=== PATIENT | female | born 1995 | race Asian ===

== ENCOUNTER 2023-08-20 12:26 | Outpatient (AMB) | payer OTHER, SELFPAY ==
[2023-08-20 12:27] VITALS: BP 122/64; PULSE 83; O2SAT 100; BMI 25.7
--- NOTE | 2023-08-20 12:27 | MHC.PC.OV ---
Vital Signs 08/20/23 12:27 Height 5 ft 5.5 in Weight 157 lb BMI 25.7 BP 122/64 Blood Pressure Location Lt brachial Position Sitting Pulse 83 Pulse Source Pulse Oximeter Temp Source Skin Pulse Oximetry (%) 100 Oxygen Delivery Method Room Air Intake Visit Reasons: Annual Exam Intake Note: Patient is here today for a physical. Pacu Rn Required: No Allergies Penicillins Adverse Reaction (Intermediate, Verified 08/20/23 12:31) rash erythromycin Allergy (Unknown, Uncoded 08/20/23 12:31) rash Medication List - Last Reconciled 08/20/23 by Bertha Fairbanks MD cholecalciferol (vitamin D3) 50 mcg PO DAILY evening primrose oil 500 mg PO DAILY fluticasone propionate 50 mcg/actuation (Flonase Allergy Relief) 1 spray intranasal DAILY PRN jfhrmikvtdvz-frfb-shezi acid 18-400 mg-mcg (Centrum Complete) 1 tab PO DAILY Tobacco use date assessed: 08/20/23 Dental Screening Dental Screen Date: 08/20/23 Did you have a dental visit in the last 12 months?: Yes Did you have a dental problem in the last 6 months where you did not have access to dental care?: No Was dental information given to patient?: Patient has dentist HPI Annual Exam HPI Details 28-year-old female coming in for physical exam. Was seen by the nurse practitioner in February 2023 for a rash treated as eczematous dermatitis with steroids and allergy nasal spray patent did have blood work August 2022 high HDL of 84 LDL of 78 normal B12 low vitamin-D electrolytes normal blood sugar is normal liver function is normal thyroid is normal. Blood count is normal. LMP endo of june, [facility] may - regular 7 days, not sexually active , no papsmear [facility], [facility] Surgical History No pertinent past surgical history Family History (Updated 08/20/23 @ 12:51 by Bertha Fairbanks MD) Mother No problems noted. Father No problems noted. Maternal Uncle Pulmonary embolism Social History Housing: House Alcohol intake: never Patient Tobacco Use Status: Never used Tobacco e-Cigarette/Vaping Use: Never Used Second Hand Smoke Exposure: No Current occupational status: employed Cognitive needs: No Hearing needs: No Vision needs: No Questionnaire PHQ-9 Over the last 2 weeks, how often have you been bothered by any of the following problems? 1. Little interest or pleasure in doing things: not at all 2. Feeling down, depressed, or hopeless: not at all 3. Trouble falling or staying asleep, or sleeping too much: not at all 4. Feeling tired or having little energy: not at all 5. Poor appetite or overeating: not at all 6. Feeling bad about yourself - or that you are a failure or have let yourself or your family down: not at all 7. Trouble concentrating on things, such as reading the newspaper or watching television: not at all 8. Moving or speaking so slowly that other people could have noticed. Or the opposite - being so fidgety or restless that you have been moving around a lot more than usual: not at all 9. Thoughts that you would be better off or of hurting yourself in some way: not at all Total score: 0 Depression Screening Interpretation: Negative Depression Screening Done: Yes 44421 - PHQ-9 Billing: Yes Source: Developed by Drs. Hamilton Heck, Claire Oconnor, Wong Wells and colleagues, with an educational eber from [employer]. Thrive Questionnaire Date Thrive assessed: 08/20/23 I am a: Patient What is your living situation today?: I have a steady place to live Within the past 12 months, did the food you bought not last and you didn't have the money to get more?: Never true Within the past 12 months, did you worry whether your food would run out before you got money to buy more?: Never true Do you have trouble paying for medicines?: No Do you have trouble getting transportation to medical appointments?: No Do you have trouble paying your heating and electricity bill?: No Do you have trouble taking care of your child, family member or friend?: No Do you have trouble with day-to-day activities such as bathing, preparing meals, shopping, managing finances, etc.?: No Are you currently unemployed and looking for a job?: No Are you interested in more education?: No Currently or been in a relationship where the following occur: no concerns reported AUDIT C Alcohol Use Questionnaire (AUDIT-C) 1. How often do you have a drink containing alcohol?: Never Total Score: 0 Score Reviewed/Action Taken: No ASHLY-7 AMB Questionnaire ASHLY-7 Date ASHLY - 7 assessed: 08/20/23 Feeling nervous, anxious, or on edge: 0 = Not at all Not being able to stop or control worryin = Not at all Worrying too much about different things: 0 = Not at all Trouble relaxin = Not at all Being so restless that it is hard to sit still: 0 = Not at all Becoming easily annoyed or irritable: 0 = Not at all Feeling afraid as if something awful might happen: 0 = Not at all Total ASHLY-7 score (0-4 normal; 5-9 mild; 10-14 moderate; 15-21 severe): 0 Source: Developed by Drs. Hamilton Heck, Claire Oconnor, Wong Wells and colleagues, with an educational eber from [employer]. ASHLY-7 Assessment Billing ASHLY-7 Assessment Tool: ASHLY-7 Assessment 85450 Review of Systems Const Denies poor appetite and Denies weakness Eyes Denies no additional complaints ENT Reports Normal hearing present, Denies dizziness, Denies nasal congestion, Denies tinnitus and Denies sore throat Card Denies chest pain, Denies syncope, Denies rapid heart rate and Denies dyspnea Resp Denies cough and Denies dyspnea GI Denies change in stool character, Reports constipation, Denies diarrhea, Denies nausea and Denies vomiting Denies urinary frequency, Denies difficulty voiding and Denies dysuria Neuro Reports Normal hearing present, Denies confusion, Denies dizziness, Denies syncope and Denies weakness Psych Denies confusion Physical exam (Primary Care) Vital Signs: Last Vital Signs Pulse 83 08/20/23 12:27 BP 122/64 08/20/23 12:27 Pulse Ox 100 08/20/23 12:27 Oxygen Delivery Method Room Air 08/20/23 12:27 BMI result Body Mass Index 25.7 Tobacco/Smoking Status: Tobacco use Status Tobacco use date assessed 08/20/23 08/20/23 12:29 Patient Tobacco Use Status Never used Tobacco 08/20/23 12:29 e-Cigarette/Vaping Use Never Used 08/20/23 12:29 PHQ-9: PHQ-9 Score PHQ-9: Total score 0 08/20/23 12:29 Depression Screening Interpretation: Negative Thrive Assessment: Date of Thrive Assessment Date Thrive assessed 08/20/23 08/20/23 12:35 Currently or been in a relationship where the following occur: no concerns reported Const General: No confusion Orientation/consciousness: No confusion HENMT Head: Yes normocephalic Ears: external ears normal and TM's normal bilaterally Face and sinus: Yes normal facial exam Mouth: moist mucous membranes Throat: Yes tonsils normal Eyes Conjunctivae: conjunctivae normal Pupils: Equal, round and reactive pupils present and Pupil accommodation reflex normal Direct Ophthalmoscopy: normal light reflex Neck Neck: No lymphadenopathy Thyroid: Thyroid normal Chest Chest palpation & inspection: normal inspection of the chest Resp Effort & Inspection: normal respiratory effort and no audible wheezes Auscultation: clear to auscultation bilaterally, no crackles, no wheezes and lung sounds not diminished Cardio Rate: regular rate Rhythm: regular rhythm Peripheral pulses: radial pulses present and dorsalis pedis present GI Palpation (GI): no masses Auscultation: normal bowel sounds and normoactive bowel sounds Rectal Exam - Female: deferred Skin General skin exam: no rashes or lesions noted Rashes: no rashes Neuro General: No confusion Cranial nerves: Yes Equal, round and reactive pupils present and Yes Normal hearing present Cognition (Neuro): normal cognition Gait exam (Neuro): Normal gait present Motor exam (neuro): 5/5 motor strength present throughout Deep tendon reflexes (DTR's): Right brachioradialis reflex intensity grade: 2+, Left brachioradialis reflex intensity grade: 2+, Right patellar reflex intensity grade: 2+ and Left patellar reflex intensity grade: 2+ Extrem General: No edema Assessment and Plan Assessment & Plan (1) Annual physical exam: Code(s): Z00.00 - Encounter for general adult medical examination without abnormal findings (2) Vitamin D deficiency: Code(s): E55.9 - Vitamin D deficiency, unspecified Plan: Continue with vitamin-D 0116-9282 units once a day (3) Allergic rhinitis: Code(s): J30.9 - Allergic rhinitis, unspecified Coding Level of Care Code Est Pt Prev Care 18-39y(96996) Diagnoses Annual physical exam Z00.00 Vitamin D deficiency E55.9 Allergic rhinitis J30.9 Additional Codes ASHLY-7 Assessment Billing - ASHLY-7 Assessment Tool: ASHLY-7 Assessment 20411 ([id number])
== END 2023-08-20 13:03 | disposition home or self-care (01) ==
PROVIDERS: Visit Provider Internal Medicine
DX: Z00.00 Encounter for general adult medical examination without abnormal findings (principal); E55.9 Vitamin D deficiency, unspecified; J30.9 Allergic rhinitis, unspecified
CPT/HCPCS: 99395

== ENCOUNTER 2023-09-24 11:32 | Outpatient (AMB) | payer OTHER, SELFPAY ==
--- NOTE | 2023-09-24 11:33 | MHC.PC.OV ---
Intake Visit Reasons: Sore throat, congested Intake Note: pt states cough, congestion, and sore throat X2 weeks with no relief Seaman Required: No Allergies Penicillins Adverse Reaction (Intermediate, Verified 09/24/23 11:33) rash erythromycin Allergy (Unknown, Uncoded 09/24/23 11:33) rash Medication List - Last Reconciled 09/24/23 by Bertha Fairbanks MD cholecalciferol (vitamin D3) 50 mcg PO DAILY doxycycline hyclate 100 mg PO DAILY evening primrose oil 500 mg PO DAILY fluticasone propionate 50 mcg/actuation (Flonase Allergy Relief) 1 spray intranasal DAILY PRN pexrofocckan-jaet-kdayg acid 18-400 mg-mcg (Centrum Complete) 1 tab PO DAILY Tobacco use date assessed: 09/24/23 HPI Sore throat, congested HPI Details 28-year-old female with a history of vitamin-D deficiency coming in for an acute problem through Telehealth. sore throat beginning of august, 1 week started to cough, no fevers, congested, mucinex taken feels - state yellowish no sob. 2 weeks ago feels congested. Patient has tried allergy medication with no response. And persistence of the cough prompting for consultation. ON LICENSE OF [facility] Surgical History No pertinent past surgical history Family History (Updated 08/20/23 @ 12:51 by Bertha Fairbanks MD) Mother No problems noted. Father No problems noted. Maternal Uncle Pulmonary embolism Housing: House Alcohol intake: never Patient Tobacco Use Status: Never used Tobacco e-Cigarette/Vaping Use: Never Used Second Hand Smoke Exposure: No Current occupational status: employed Cognitive needs: No Hearing needs: No Vision needs: No Questionnaire Thrive Questionnaire Date Thrive assessed: 08/20/23 ASHLY-7 AMB Questionnaire ASHLY-7 Date ASHLY - 7 assessed: 08/20/23 Source: Developed by Drs. Hamilton Heck, Claire Oconnor, Wong Wells and colleagues, with an educational eber from [employer]. Physical exam (Primary Care) Tobacco/Smoking Status: Tobacco use Status Tobacco use date assessed 09/24/23 09/24/23 11:35 Patient Tobacco Use Status Never used Tobacco 09/24/23 11:35 e-Cigarette/Vaping Use Never Used 09/24/23 11:35 Thrive Assessment: Date of Thrive Assessment Date Thrive assessed 08/20/23 09/24/23 11:35 Telehealth Telehealth Location of provider rendering services: practice address Location of patient: address on file Patient Identification confirmed using: Name, : Yes Telehealth method: voice only (iphone//[id number]) Patient verbally consented to treatment: Yes Patient verbally consented to billing insurance company: Yes Patient informed of any privacy concerns related to visit: Yes Minutes spent on Phone/Video with Pt.: 15 Assessment and Plan Assessment & Plan (1) Upper respiratory infection: Code(s): J06.9 - Acute upper respiratory infection, unspecified Plan: Patient has tried allergy medication with no response. Medications: New doxycycline hyclate 100 mg PO DAILY 14 caps 0RF J06.9 - Acute upper respiratory infection, unspecified Coding Level of Care Code Tele Est Pt Level 3 (61876) Diagnoses Upper respiratory infection J06.9
== END 2023-09-24 13:39 | disposition home or self-care (01) ==
LOC: HO.HMGH 11:32
PROVIDERS: PCP Internal Medicine; Visit Provider Internal Medicine
DX: J06.9 Acute upper respiratory infection, unspecified (principal)
CPT/HCPCS: 99213

== ENCOUNTER 2024-06-12 09:00 | Outpatient (AMB) | payer OTHER, SELFPAY ==
[2024-06-12 09:05] VITALS: BP 120/64; PULSE 77; O2SAT 99; BMI 24.7
--- NOTE | 2024-06-12 09:05 | A.OFFPC_ITS ---
Vital Signs 06/12/24 09:05 Height 5 ft 5.5 in Weight 151 lb BMI 24.7 BP 120/64 Blood Pressure Location Lt brachial Position Sitting Pulse 77 Pulse Source Pulse Oximeter Pulse Oximetry (%) 99 Oxygen Delivery Method Room Air Intake Visit Reasons: GI Issues Intake Note: pt c/o constipation/diarrhea, abdominal pain and bloating with no relief. Oiler Bander Required: No Allergies Penicillins Adverse Reaction (Intermediate, Verified 06/12/24 09:16) rash erythromycin Allergy (Unknown, Uncoded 06/12/24 09:16) rash Tobacco use date assessed: 06/12/24 Dental Screening Dental Screen Date: 06/12/24 Did you have a dental visit in the last 12 months?: Yes Did you have a dental problem in the last 6 months where you did not have access to dental care?: No Was dental information given to patient?: Patient has dentist HPI GI Issues HPI Details 29-year-old female with past medical his tory eczema and vitamin-D deficiency last seen by Dr. Fairbanks 08/2023 coming in for acute problem. She tells us today she had extreme abdominal bloating for 5 hours on Sunday along with abdominal pain that lasted for 1 hour. In the days prior she had felt constipated and was using fiber gummies to help with the constipation which gave her diarrhea for several days. She discontinued the fiber gummies and the bloating and pain resolved. Over the last few days she has had normal bowel movements without diarrhea or constipation and states symptoms have completely resolved. She has had this bloating in the past several years ago which also resolved spontaneously. [facility] Surgical History No pertinent past surgical history Family History Mother No problems noted. Father No problems noted. Maternal Uncle Pulmonary embolism Social History Housing: House Alcohol intake: never Patient Tobacco Use Status: Never used Tobacco e-Cigarette/Vaping Use: Never Used Second Hand Smoke Exposure: No Current occupational status: employed Cognitive needs: No Hearing needs: No Vision needs: No Questionnaire PHQ-9 Over the last 2 weeks, how often have you been bothered by any of the following problems? 1. Little interest or pleasure in doing things: not at all 2. Feeling down, depressed, or hopeless: not at all 3. Trouble falling or staying asleep, or sleeping too much: not at all 4. Feeling tired or having little energy: not at all 5. Poor appetite or overeating: not at all 6. Feeling bad about yourself - or that you are a failure or have let yourself or your family down: not at all 7. Trouble concentrating on things, such as reading the newspaper or watching television: not at all 8. Moving or speaking so slowly that other people could have noticed. Or the opposite - being so fidgety or restless that you have been moving around a lot more than usual: not at all 9. Thoughts that you would be better off or of hurting yourself in some wa y: not at all Total score: 0 Depression Screening Interpretation: Negative Depression Screening Done: Yes 49171 - PHQ-9 Billing: Yes Source: Developed by Drs. Hamilton Heck, Wong Mccormack and colleagues, with an educational eber from [employer]. Thrive Questionnaire Date Thrive assessed: 08/20/23 AUDIT C Alcohol Use Questionnaire (AUDIT-C) 1. How often do you have a drink containing alcohol?: Never 3. How often do you have six or more drinks on one occasion?: Never Total Score: 0 Score Reviewed/Action Taken: No ASHLY-7 AMB Questionnaire ASHLY-7 Date ASHLY - 7 assessed: 08/20/23 Source: Developed by Drs. Hamilton Heck, Wong Mccormack and colleagues, with an educational eber from [employer]. Review of Systems Const Denies body aches, Denies chills, Denies fever(s), Denies headache(s) and Denies poor appetite Eyes Reports no additional complaints ENT Denies dizziness and Denies headache(s) Card Reports no additional complaints and Denies dyspnea Resp Denies dyspnea GI Denies abdominal pain, Denies constipation, Denies diarrhea, Denies nausea and Denies vomiting Reports no additional complaints Musc Reports no additional complaints and Denies abnormal gait Skin/Breast Reports system reviewed and no additional complaints, except as documented Neuro Denies abnormal gait, Denies dizziness and Denies headache(s) Psych Reports no additional complaints Physical exam (Primary Care) Vital Signs: Last Vital Signs Pulse 77 06/12/24 09:05 BP 120/64 06/12/24 09:05 Pulse Ox 99 06/12/24 09:05 Oxygen Delivery Method Room Air 06/12/24 09:05 BMI result Body Mass Index 24.7 Tobacco/Smoking Status: Tobacco use Status Tobacco use date assessed 06/12/24 06/12/24 09:07 Patient Tobacco Use Status Never used Tobacco 06/12/24 09:05 e-Cigarette/Vaping Use Never Used 06/12/24 09:05 PHQ-9: PHQ-9 Score PHQ-9: Total score 0 06/12/24 09:18 Depression Screening Interpretation: Negative Thrive Assessment: Date of Thrive Assessment Date Thrive assessed 08/20/23 06/12/24 09:05 Const General: cooperative, healthy appearing, comfortable and no acute distress Orientation/consciousness: patient oriented x3 HENMT Head: Yes normocephalic Ears: hearing grossly normal bilaterally General nose exam: Normal external nose present Eyes General: appearance normal, both eyes and all related structures Conjunctivae: conjunctivae normal Neck Neck: Yes full ROM and Yes no lymphadenopathy Resp Effort & Inspection: normal respiratory effort Auscultation: clear to auscultation bilaterally, no crackles, no rales, no rhonchi and no wheezes Cardio Rate: regular rate Rhythm: regular rhythm GI Inspection: Yes normal to inspection Palpation (GI): Soft to palpation, not firm, nontender, no guarding, not rigid and No Rebound tenderness present Skin General skin exam: no rashes or lesions noted Neuro General: patient oriented x3 Gait exam (Neuro): Normal gait present Extrem General: Yes normal to inspection, Yes full ROM and No edema Psych Affect: normal affect Attitude: cooperative Insight: Good insight present (Psych) Judgement: Good judgement present (Psych) Assessment and Plan Assessment & Plan (1) Penicillin allergy: Code(s): Z88.0 - Allergy status to penicillin Plan: Patient would like to be re-evaluate for penicillin allergy as she travels to [place] and is able to sometimes take penicillin while she is there. (2) Abdominal bloating: Code(s): R14.0 - Abdominal distension (gaseous) Plan: Abdominal bloating and diarrhea has resolved at this time we will continue to monitor for symptoms. If symptoms return please reach out for re-evaluation. Increase water intake and encouraged healthy diet. Plan This note was constructed using voice recognition software. While every effort has been made to ensure accuracy and material requirements worker, still areas may have been included sometimes these areas may affect the content or meeting of the given symptoms. Total time spent caring for the patient today was 20 minutes. This includes time spent before the visit reviewing the chart, time spent during the visit, and time spent after the visit and documentation. Orders: Referrals Allergy & Immunology Referral Z88.0 - Allergy status to penicillin Coding Level of Care Code Est Pt Level 3 (52873) Diagnoses Penicillin allergy Z88.0 Abdominal bloating R14.0
== END 2024-06-12 09:39 | disposition home or self-care (01) ==
PROVIDERS: PCP Internal Medicine
DX: Z88.0 Allergy status to penicillin (principal); R14.0 Abdominal distension (gaseous)
CPT/HCPCS: 99213

== ENCOUNTER 2024-09-02 15:14 | Outpatient (REF) | payer OTHER, SELFPAY ==
[2024-09-02 16:18] LABS: MANUAL DIFF FLAG NO
[2024-09-02 17:03] LABS: Basophils Percent Auto 0.3 % (0-2); Eosinophils Absolute Auto 0.2 X10*3/uL (0.0-0.4); Eosinophils Percent Auto 3.7 % (0-4); Hematocrit 37.7 % (37.0-47.0); Hemoglobin 12.6 g/dl (12.0-16.0); Imm Gran Abs Auto 0.01 X10*3/uL (0.00-0.03); Imm Gran Pct Auto 0.2 % (0.0-0.4); Lymphocytes Absolute Auto 2.4 X10*3/uL (1.2-4.9); Lymphocytes Percent Auto 37.2 % (20-40); Mean Corpuscular HGB Conc 33.4 g/dl (31.0-35.0); Mean Corpuscular Hemoglobin 30.5 pg (27.0-33.0); Mean Corpuscular Volume 91.3 fL (80.0-98.0); Mean Platelet Volume 9.5 fL (9.4-12.3); Monocytes Absolute Auto 0.6 X10*3/uL (0.1-1.2); Neutrophils Absolute Auto 3.1 x10*3/uL (2.0-8.3); Neutrophils Percent Auto 48.6 % (45-73); Platelet Count 260 X10*3/uL (160-400); Red Blood Count 4.13 X10*6/uL (4.20-5.50); Red Cell Distribution Width 12.7 % (11.0-16.0); White Blood Count 6.4 X10*3/uL (4.8-10.8)
[2024-09-02 17:36] LABS: Alanine Aminotransferase 32 U/L (0-31); Albumin Level 4.6 g/dL (3.5-5.0); Alkaline Phosphatase 88 U/L (39-117); Anion Gap 14 (12-20); Aspartate Amino Transferase 23 U/L (5-31); Bilirubin Total 0.1 mg/dL (0.0-1.0); Blood Urea Nitrogen 18 mg/dL (9-16); Calcium 10.5 mg/dL (8.4-10.2); Carbon Dioxide 23 mmol/L (22-29); Chloride 105 mmol/L (96-108); Estimated Glomerular Filt Rate > 60; Glucose Random 95 mg/dL (60-115); Potassium 4.3 mmol/L (3.3-5.1); Sodium 138 mmol/L (135-145); Total Protein 8.5 g/dL (6.5-8.0)
[2024-09-02 17:53] LABS: Free T4 (Free Thyroxine) 1.04 ng/dL (0.71-1.85)
[2024-09-02 18:06] LABS: Folate 14.5 ng/mL (> or = 4.0); Vitamin B12 680 pg/mL (200-900)
[2024-09-06 17:03] LABS: Vitamin D 25-OH, D2 <4 ng/mL; Vitamin D 25-OH, D3 30 ng/mL; Vitamin D 25-OH, Total 30 ng/mL (30-100)
== END 2024-09-02 15:15 | disposition home or self-care (01) ==
LOC: HO.LAB 15:14
PROVIDERS: PCP Internal Medicine
DX: Z00.00 Encounter for general adult medical examination without abnormal findings (principal); E55.9 Vitamin D deficiency, unspecified
CPT/HCPCS: 36415; 80053; 82306; 82607; 82746; 84439; 84443; 85025; 96127

== ENCOUNTER 2024-09-02 15:14 | Outpatient (AMB) | payer OTHER, SELFPAY ==
[2024-09-02 15:29] VITALS: BP 124/80; PULSE 68; O2SAT 98; BMI 25.1
--- NOTE | 2024-09-02 15:29 | MHC.PC.OV ---
Vital Signs 09/02/24 15:29 Height 5 ft 5.5 in Weight 153 lb BMI 25.1 BP 124/80 Blood Pressure Location Lt brachial Position Sitting Pulse 68 Pulse Source Pulse Oximeter Pulse Oximetry (%) 98 Oxygen Delivery Method Room Air Intake Visit Reasons: annual exam Allergies erythromycin Allergy (Unknown, Uncoded 09/02/24 15:44) rash Medication List - Last Reconciled 09/02/24 by Xiomara Pickens PA-C cholecalciferol (vitamin D3) 50 mcg PO DAILY evening primrose oil 500 mg PO DAILY fluticasone propionate 50 mcg/actuation (Flonase Allergy Relief) 1 spray intranasal DAILY PRN eyiizkgrszwk-ssxg-trbyp acid 18-400 mg-mcg (Centrum Complete) 1 tab PO DAILY Tobacco use date assessed: 06/12/24 Dental Screening Dental Screen Date: 06/12/24 Did you have a dental visit in the last 12 months?: Yes Did you have a dental problem in the last 6 months where you did not have access to dental care?: No Was dental information given to patient?: Patient has dentist HPI annual exam HPI Details 29-year-old female with past medical history eczema and vitamin-D deficiency last seen May 2024 coming in for annual exam. Has been having a cough only in the morning and at night which started last Sunday. Denies any other symptoms. She did have a laceration on the right index finger 2 weeks ago and received her tetanus vaccine. She has not had a Pap smear in the past and is declining this screening. She also mentioned she has right knee pain after working out on occasion. [facility] Surgical History No pertinent past surgical history Family History Mother No problems noted. Father No problems noted. Maternal Uncle Pulmonary embolism Social History Housing: House Alcohol intake: never Patient Tobacco Use Status: Never used Tobacco e-Cigarette/Vaping Use: Never Used Second Hand Smoke Exposure: No Current occupational status: employed Cognitive needs: No Hearing needs: No Vision needs: No Questionnaire PHQ-9 Over the last 2 weeks, how often have you been bothered by any of the following problems? 1. Little interest or pleasure in doing things: not at all 2. Feeling down, depressed, or hopeless: not at all 3. Trouble falling or staying asleep, or sleeping too much: not at all 4. Feeling tired or having little energy: not at all 5. Poor appetite or overeating: not at all 6. Feeling bad about yourself - or that you are a failure or have let yourself or your family down: not at all 7. Trouble concentrating on things, such as reading the newspaper or watching television: not at all 8. Moving or speaking so slowly that other people could have noticed. Or the opposite - being so fidgety or restless that you have been moving around a lot more than usual: not at all 9. Thoughts that you would be better off or of hurting yourself in some way: not at all Total score: 0 Depression Screening Interpretation: Negative Depression Screening Done: Yes 67657 - PHQ-9 Billing: Yes Source: Developed by Drs. Hamilton Heck, Claire Oconnor, Wong Wells and colleagues, with an educational eber from [employer]. Thrive Questionnaire Date Thrive assessed: 08/14/24 I am a: Patient What is your living situation today?: I have a steady place to live Within the past 12 months, did the food you bought not last and you didn't have the money to get more?: Never true Within the past 12 months, did you worry whether your food would run out before you got money to buy more?: Never true Do you have trouble paying for medicines?: No Do you have trouble getting transportation to medical appointments?: No Do you have trouble paying your heating and electricity bill?: No Do you have trouble taking care of your child, family member or friend?: No Do you have trouble with day-to-day activities such as bathing, preparing meals, shopping, managing finances, etc.?: No Are you currently unemployed and looking for a job?: No Are you interested in more education?: Yes Please select the resources that you would like help with: None Currently or been in a relationship where the following occur: No concerns reported THRIVE Score: 0 AUDIT C Alcohol Use Questionnaire (AUDIT-C) 1. How often do you have a drink containing alcohol?: Never 3. How often do you have six or more drinks on one occasion?: Never Total Score: 0 Score Reviewed/Action Taken: No ASHLY-7 AMB Questionnaire ASHLY-7 Date ASHLY - 7 assessed: 09/02/24 Feeling nervous, anxious, or on edge: 0 = Not at all Not being able to stop or control worryin = Not at all Worrying too much about different things: 0 = Not at all Trouble relaxin = Not at all Being so restless that it is hard to sit still: 0 = Not at all Becoming easily annoyed or irritable: 0 = Not at all Feeling afraid as if something awful might happen: 0 = Not at all Total ASHLY-7 score (0-4 normal; 5-9 mild; 10-14 moderate; 15-21 severe): 0 Source: Developed by Drs. Hamilton Heck, Claire Oconnor, Wong Wells and colleagues, with an educational eber from [employer]. ASHLY-7 Assessment Billing ASHLY-7 Assessment Tool: ASHLY-7 Assessment 59257 Review of Systems Const Denies body aches, Denies fatigue, Denies fever(s), Denies frequent falls, Denies headache(s) and Denies weakness Eyes Reports no additional complaints and Denies change in vision ENT Denies dysphagia, Denies dizziness, Denies facial pain, Denies headache(s), Denies nasal congestion and Denies odynophagia Card Denies chest pain, Denies syncope, Denies irregular heart rhythm, Denies leg edema, Denies lightheadedness and Denies dyspnea Resp Denies cough and Denies dyspnea GI Denies constipation, Denies dysphagia, Denies dyspepsia, Denies diarrhea, Denies nausea, Denies odynophagia and Denies vomiting Denies urinary frequency, Denies dysuria, Denies urinary hesitancy and Denies urinary urgency Musc Denies back pain and Denies myalgias Skin/Breast Reports system reviewed and no additional complaints, except as documented Neuro Denies dizziness, Denies syncope, Denies frequent falls, Denies headache(s) and Denies weakness Psych Reports no additional complaints Endo Denies fatigue Physical exam (Primary Care) Vital Signs: Last Vital Signs Pulse 68 09/02/24 15:29 BP 124/80 09/02/24 15:29 Pulse Ox 98 09/02/24 15:29 Oxygen Delivery Method Room Air 09/02/24 15:29 BMI result Body Mass Index 25.1 Tobacco/Smoking Status: Tobacco use Status Tobacco use date assessed 06/12/24 09/02/24 15:35 Patient Tobacco Use Status Never used Tobacco 09/02/24 15:35 e-Cigarette/Vaping Use Never Used 09/02/24 15:35 PHQ-9: PHQ-9 Score PHQ-9: Total score 0 09/02/24 15:38 Depression Screening Interpretation: Negative Thrive Assessment: Date of Thrive Assessment Date Thrive assessed 08/14/24 09/02/24 15:35 Currently or been in a relationship where the following occur: No concerns reported Const General: cooperative, healthy appearing, comfortable and no acute distress Orientation/consciousness: patient oriented x3 HENMT Head: Yes normocephalic Ears: hearing grossly normal bilaterally, external ears normal, TM's normal bilaterally and EAC's normal General nose exam: Normal external nose present Face and sinus: Yes normal facial exam and Yes sinuses nontender Mouth: Normal oral and palatal mucosa present and tongue normal Throat: Yes posterior oropharynx normal Eyes General: appearance normal, both eyes and all related structures Conjunctivae: conjunctivae normal Pupils: Equal, round and reactive pupils present EOM: EOMs intact bilaterally and No Nystagmus present Neck Neck: Yes normal visual inspection, Yes full ROM and Yes no lymphadenopathy Chest Chest palpation & inspection: normal inspection of the chest Resp Effort & Inspection: normal respiratory effort Auscultation: clear to auscultation bilaterally, no crackles, no rales, no rhonchi, no wheezes and breath sounds present Cardio Rate: regular rate Rhythm: regular rhythm Peripheral pulses: radial pulses present and dorsalis pedis present GI Inspection: Yes normal to inspection and No Abdominal wall edema Palpation (GI): Soft to palpation, not firm and nontender Auscultation: normal bowel sounds Rectal Exam - Female: deferred General: Yes no CVA tenderness Back/Spine/Pelvis Back: no CVA tenderness Skin Other: Routine healing of right index finger laceration without evidence of infection General skin exam: no rashes or lesions noted Neuro General: patient oriented x3 Cranial nerves: Yes Equal, round and reactive pupils present, Yes Midline tongue present, Yes Ability to bilaterally elevate shoulders present and No Nystagmus present Gait exam (Neuro): Normal gait present Extrem Other: No pain to palpation of right knee General: Yes normal to inspection, Yes full ROM, No no pedal edema and No edema Psych Speech and movement: Normal speech and movement present Affect: normal affect Insight: Good insight present (Psych) Judgement: Good judgement present (Psych) Coding Level of Care Code Est Pt Prev Care 18-39y(73466) Diagnoses Right knee pain M25.561 Vitamin D deficiency E55.9 Annual physical exam Z00.00 Eczema L30.9 Allergic rhinitis J30.9 Additional Codes ASHLY-7 Assessment Billing - ASHLY-7 Assessment Tool: ASHLY-7 Assessment 04786 ([id number]) PHQ-9 - 87231 - PHQ-9 Billing: Yes ([id number]) Assessment & Plan Assessment & Plan (1) Right knee pain: Code(s): M25.561 - Pain in right knee Category: Medical Plan: Discussed the importance of good form when doing leg workouts. Considering the pain is only present after working out most likely due to work out activity. Discussed gentle stretching and offered physical therapy which was declined. (2) Vitamin D deficiency: Code(s): E55.9 - Vitamin D deficiency, unspecified Category: Medical Plan: Ordered for updated blood work. (3) Annual physical exam: Code(s): Z00.00 - Encounter for general adult medical examination without abnormal findings Category: Medical Plan: Patient declining Pap smear as she is not sexually active. She is up-to-date on all recommended vaccinations for her age and blood work is ordered. Follow up in 1 year sooner if new problems arise (4) Eczema: Code(s): L30.9 - Dermatitis, unspecified Category: Medical Plan: Well managed at this time. Continue to avoid triggers (5) Allergic rhinitis: Code(s): J30.9 - Allergic rhinitis, unspecified Category: Medical Plan: Cough in the morning most likely related to postnasal drip and evidence of postnasal drip on exam today. Advised to use Flonase and [id number] antihistamines. Plan This note was constructed using voice recognition software. While every effort has been made to ensure accuracy and therapeutic assistant, still areas may have been included sometimes these areas may affect the content or meeting of the given symptoms. Total time spent caring for the patient today was 30 minutes. This includes time spent before the visit reviewing the chart, time spent during the visit, and time spent after the visit and documentation. Orders: Orders Complete Blood Count Auto Diff Today Z00.00 - Encounter for general adult medical examination without abnormal findings Free T4 (Free Thyroxine) Today Z00.00 - Encounter for general adult medical examination without abnormal findings Vitamin D 25-OH (D2 and D3) Today Z00.00 - Encounter for general adult medical examination without abnormal findings Comprehensive Met. Panel Today Z00.00 - Encounter for general adult medical examination without abnormal findings TSH reflex Free T4 Today Z00.00 - Encounter for general adult medical examination without abnormal findings Vitamin B12 and Folate Today Z00.00 - Encounter for general adult medical examination without abnormal findings Medications: Refilled fluticasone propionate 50 mcg/actuation (Flonase Allergy Relief) administer into each nostril 1 spray intranasal DAILY PRN 100 mL 3RF nasal congestion J30.9 - Allergic rhinitis, unspecified
== END 2024-09-02 15:57 | disposition home or self-care (01) ==
LOC: HO.HMCH 15:15
PROVIDERS: PCP Internal Medicine
DX: M25.561 Pain in right knee (principal); E55.9 Vitamin D deficiency, unspecified; Z00.00 Encounter for general adult medical examination without abnormal findings; L30.9 Dermatitis, unspecified; J30.9 Allergic rhinitis, unspecified

== ENCOUNTER 2025-01-02 14:44 | Outpatient (AMB) | payer OTHER, SELFPAY ==
[2025-01-02 14:56] VITALS: BP 120/72; PULSE 77; RESP 20; TEMP 36.5; O2SAT 99; BMI 26.1
--- NOTE | 2025-01-02 14:56 | MHC.PC.OV ---
Vital Signs 01/02/25 14:56 Height 5 ft 5.5 in Weight 159 lb 2 oz BMI 26.1 BP 120/72 Blood Pressure Location Lt brachial Position Sitting Respiration 20 Pulse 77 Pulse Source Pulse Oximeter Temp 97.7 F Temp Source Temporal Artery Scan Pulse Oximetry (%) 99 Oxygen Delivery Method Room Air Intake Visit Reasons: heal spur left Environmental Air Specialist Required: No Accompanied by: Self / Same As Patient Allergies erythromycin base Allergy (Unknown, Verified 01/02/25 15:05) Rash Tobacco use date assessed: 01/02/25 Dental Screening Dental Screen Date: 01/02/25 Did you have a dental visit in the last 12 months?: Yes Did you have a dental problem in the last 6 months where you did not have access to dental care?: No Was dental information given to patient?: Patient has dentist HPI HPI Comments History of Present Illness Details 29 y/o female patient who presents to the clinic with c/o Left Foot/Heel pain for few days now. Reports Palpating a small Lump that feels like a small Bone Spur. Pt also c/o right Big Toe Nail fungus. She has been using OTC Anti-fungal medications with very minimal relief. [facility] Medical History (Updated 01/02/25 @ 15:30 by Ava Zavaleta NP) Onychomycosis Foot pain, left Surgical History No pertinent past surgical history Family History Mother No problems noted. Father No problems noted. Maternal Uncle Pulmonary embolism Social History Housing: House Alcohol intake: never Patient Tobacco Use Status: Never used Tobacco e-Cigarette/Vaping Use: Never Used Second Hand Smoke Exposure: No Current occupational status: employed Current occupation: Teacher Cognitive needs: No Hearing needs: No Vision needs: Yes Questionnaire PHQ-9 Over the last 2 weeks, how often have you been bothered by any of the following problems? 1. Little interest or pleasure in doing things: not at all 2. Feeling down, depressed, or hopeless: not at all 3. Trouble falling or staying asleep, or sleeping too much: not at all 4. Feeling tired or having little energy: not at all 5. Poor appetite or overeating: not at all 6. Feeling bad about yourself - or that you are a failure or have let yourself or your family down: not at all 7. Trouble concentrating on things, such as reading the newspaper or watching television: not at all 8. Moving or speaking so slowly that other people could have noticed. Or the opposite - being so fidgety or restless that you have been moving around a lot more than usual: not at all 9. Thoughts that you would be better off or of hurting yourself in some way: not at all Total score: 0 Depression Screening Interpretation: Negative Depression Screening Done: Yes 76288 - PHQ-9 Billing: Yes Source: Developed by Drs. Hamilton Heck, Claire Oconnor, Wong Wells and colleagues, with an educational eber from [employer]. Thrive Questionnaire Date Thrive assessed: 01/02/25 I am a: Patient What is your living situation today?: I have a steady place to live Within the past 12 months, did the food you bought not last and you didn't have the money to get more?: Never true Within the past 12 months, did you worry whether your food would run out before you got money to buy more?: Never true Do you have trouble paying for medicines?: No Do you have trouble getting transportation to medical appointments?: No Do you have trouble paying your heating and electricity bill?: No Do you have trouble taking care of your child, family member or friend?: No Do you have trouble with day-to-day activities such as bathing, preparing meals, shopping, managing finances, etc.?: No Are you currently unemployed and looking for a job?: No Are you interested in more education?: No Please select the resources that you would like help with: None Currently or been in a relationship where the following occur: No concerns reported THRIVE Score: 0 AUDIT C Alcohol Use Questionnaire (AUDIT-C) 1. How often do you have a drink containing alcohol?: Never 3. How often do you have six or more drinks on one occasion?: Never Total Score: 0 Score Reviewed/Action Taken: No ASHLY-7 AMB Questionnaire ASHLY-7 Date ASHLY - 7 assessed: 01/02/25 Feeling nervous, anxious, or on edge: 0 = Not at all Not being able to stop or control worryin = Not at all Worrying too much about different things: 0 = Not at all Trouble relaxin = Not at all Being so restless that it is hard to sit still: 0 = Not at all Becoming easily annoyed or irritable: 0 = Not at all Feeling afraid as if something awful might happen: 0 = Not at all Total ASHLY-7 score (0-4 normal; 5-9 mild; 10-14 moderate; 15-21 severe): 0 Source: Developed by Drs. Hamilton Heck, Claire Oconnor, Wong Wells and colleagues, with an educational eber from [employer]. ASHLY-7 Assessment Billing ASHLY-7 Assessment Tool: ASHLY-7 Assessment 69035 Review of Systems Const All systems reviewed & are unremarkable except as noted in HPI and below Physical exam (Primary Care) Vital Signs: Last Vital Signs Temp 97.7 F 01/02/25 14:56 Pulse 77 01/02/25 14:56 Resp 20 01/02/25 14:56 BP 120/72 01/02/25 14:56 Pulse Ox 99 01/02/25 14:56 Oxygen Delivery Method Room Air 01/02/25 14:56 BMI result Body Mass Index 26.1 Tobacco/Smoking Status: Tobacco use Status Tobacco use date assessed 01/02/25 01/02/25 15:08 Patient Tobacco Use Status Never used Tobacco 01/02/25 15:08 e-Cigarette/Vaping Use Never Used 01/02/25 15:08 PHQ-9: PHQ-9 Score PHQ-9: Total score 0 01/02/25 15:16 Depression Screening Interpretation: Negative Thrive Assessment: Date of Thrive Assessment Date Thrive assessed 01/02/25 01/02/25 15:08 Currently or been in a relationship where the following occur: No concerns reported Const General: cooperative Orientation/consciousness: patient oriented x3 Skin Nails: discolored and yellow and thickened (Right Big Toe Nail) Neuro General: patient oriented x3 Extrem Left lower extremity: foot Details: normal capillary refill, tenderness (left Heel small bone spur Palpated TTP) and no edema; no ecchymosis Coding Level of Care Code Est Pt Level 4 (45605) Diagnoses Foot pain, left M79.672 Onychomycosis B35.1 Additional Codes ASHLY-7 Assessment Billing - ASHLY-7 Assessment Tool: ASHLY-7 Assessment 55100 ([id number]) PHQ-9 - 75249 - PHQ-9 Billing: Yes ([id number]) Time Spent (min) 20 Assessment & Plan Assessment & Plan (1) Foot pain, left: Code(s): M79.672 - Pain in left foot Category: Medical Plan: Ordered Xray of Foot NSAIDs for pain relief Soak foot in warm water (2) Onychomycosis: Code(s): B35.1 - Tinea unguium Category: Medical Plan: Ordered Lotrimin cream Orders: Orders XR foot LT 2V Today M79.672 - Pain in left foot Medications: New clotrimazole 1% 1 appl topical BID 8 weeks 30 mL 2RF Nail Fungus B35.1 - Tinea unguium
== END 2025-01-02 15:27 | disposition home or self-care (01) ==
PROVIDERS: PCP Internal Medicine; Visit Provider Nurse Practitioner Family
DX: M79.672 Pain in left foot (principal); B35.1 Tinea unguium

== ENCOUNTER 2025-01-02 14:44 | Outpatient (REF) | payer OTHER, SELFPAY ==
--- NOTE | ~2025-01-02 | XR_ITS ---
EXAMINATION: XR FOOT 3 OR MORE VIEWS LEFT HISTORY: M79.672 - Pain in left foot COMPARISON: There are no prior studies available for comparison. FINDINGS: Three views of the left foot are submitted. Osseous mineralization is normal. There is no fracture or dislocation. The joint spaces are preserved. The soft tissues are unremarkable. XR/XR foot LT min 3V IMPRESSION: Unremarkable examination of the left foot. Electronically signed by: Hamilton Oliva MD 01/05/2025 08:08 AM EDT
== END 2025-01-02 14:45 | disposition home or self-care (01) ==
LOC: HO.XRAY 14:44
PROVIDERS: PCP Internal Medicine; Visit Provider Nurse Practitioner Family
DX: M79.672 Pain in left foot (principal); B35.1 Tinea unguium
CPT/HCPCS: 73630; 96127

== ENCOUNTER → 2025-01-02 15:39 | Outpatient (BNV) | payer OTHER, SELFPAY | PROVIDERS: PCP Internal Medicine; Visit Provider Radiology Diagnostic Radiology | DX: M79.672 Pain in left foot (principal) | CPT/HCPCS: 73630 ==

== ENCOUNTER 2025-10-07 13:42 | Outpatient (AMB) | payer OTHER, SELFPAY ==
[2025-10-07 13:45] VITALS: BP 130/66; PULSE 78; RESP 18; O2SAT 98; BMI 27.1
--- NOTE | 2025-10-07 13:45 | A.OFFPC_ITS ---
Vital Signs 10/07/25 13:45 Height 5 ft 5.5 in Weight 165 lb 4 oz BMI 27.1 BP 130/66 Blood Pressure Location Lt brachial Position Sitting Respiration 18 Pulse 78 Pulse Source Pulse Oximeter Temp Source Temporal Artery Scan Pulse Oximetry (%) 98 Oxygen Delivery Method Room Air Intake Visit Reasons: annual exam Rewinder Operator Required: No Accompanied by: Self / Same As Patient Allergies erythromycin base Allergy (Unknown, Verified 10/07/25 13:47) Rash Medication List - Last Reconciled 10/07/25 by Xiomara Pickens PA-C cholecalciferol (vitamin D3) 50 mcg PO DAILY clotrimazole 1% 1 appl topical BID 8 weeks evening primrose oil 500 mg PO DAILY fluticasone propionate 50 mcg/actuation (Flonase Allergy Relief) 1 spray intranasal DAILY PRN [id number]-tvyd-lypts acid 18-400 mg-mcg (Centrum Complete) 1 tab PO DAILY Tobacco use date assessed: 10/07/25 Dental Screening Dental Screen Date: 10/07/25 Did you have a dental visit in the last 12 months?: Yes Did you have a dental problem in the last 6 months where you did not have access to dental care?: No Was dental information given to patient?: Patient has dentist HPI annual exam HPI Details 30-year-old female with past medical his tory of eczema and vitamin-D deficiency last seen 09/21 coming in for annual exam. Presenting for her annual examination and to discuss intermittent hearing loss, bloating, and eczema. The patient reports intermittent, unilateral hearing loss that has occurred for a short while, affecting either the right or left ear, but not simultaneously. This symptom occurs sometimes when she sings high-pitched notes, started recently, and was not an issue 5-6 years ago. The last episode was a week ago, occurring weekly during choir practice this past fall. The hearing loss lasts for a few seconds, is not associated with pain or popping, and resolves upon stopping singing. The patient experiences bloating easily after meals if she gets too hungry beforehand, such as after skipping a meal for over 6 hours. This occurs about once a month, typically after dinner, and is not an everyday issue. The bloating is described as uncomfortable but is not associated with nausea, vomiting, constipation, or diarrhea. It can last from half an hour to a few hours and is relieved by gas relief pills. Pap smear: declines Vaccinations: Tdap [facility] Medical History Onychomycosis Foot pain, left Surgical History No pertinent past surgical history Family History Mother No problems noted. Father No problems noted. Maternal Uncle Pulmonary embolism Social History Housing: House Alcohol intake: never Patient Tobacco Use Status: Never used Tobacco e-Cigarette/Vaping Use: Never Used Second Hand Smoke Exposure: No Current occupational status: employed Current occupation: Teacher Cognitive needs: No Hearing needs: No Vision needs: Yes Questionnaire PHQ-9 Over the last 2 weeks, how often have you been bothered by any of the following problems? 1. Little interest or pleasure in doing things: not at all 2. Feeling down, depressed, or hopeless: not at all 3. Trouble falling or staying asleep, or sleeping too much: not at all 4. Feeling tired or having little energy: not at all 5. Poor appetite or overeating: not at all 6. Feeling bad about yourself - or that you are a failure or have let yourself or your family down: not at all 7. Trouble concentrating on things, such as reading the newspaper or watching television: not at all 8. Moving or speaking so slowly that other people could have noticed. Or the opposite - being so fidgety or restless that you have been moving around a lot more than usual: not at all 9. Thoughts that you would be better off or of hurting yourself in some way: not at all Total score: 0 Source: Developed by Drs. Hamilton Heck, Claire Oconnor, Wong Wells and colleagues, with an educational eber from [employer]. Thrive Questionnaire Date Thrive assessed: 10/07/25 I am a: Patient What is your living situation today?: I have a steady place to live Within the past 12 months, did the food you bought not last and you didn't have the money to get more?: Never true Within the past 12 months, did you worry whether your food would run out before you got money to buy more?: Never true Do you have trouble paying for medicines?: No Do you have trouble getting transportation to medical appointments?: No Do you have trouble paying your heating and electricity bill?: No Do you have trouble taking care of your child, family member or friend?: No Do you have trouble with day-to-day activities such as bathing, preparing meals, shopping, managing finances, etc.?: No Are you currently unemployed and looking for a job?: No Are you interested in more education?: No Please select the resources that you would like help with: None Currently or been in a relationship where the following occur: No concerns reported THRIVE Score: 0 AUDIT C Alcohol Use Questionnaire (AUDIT-C) 1. How often do you have a drink containing alcohol?: Never Total Score: 0 ASHLY-7 AMB Questionnaire ASHLY-7 Date ASHLY - 7 assessed: 10/07/25 Feeling nervous, anxious, or on edge: 0 = Not at all Not being able to stop or control worryin = Not at all Worrying too much about different things: 0 = Not at all Trouble relaxin = Not at all Being so restless that it is hard to sit still: 0 = Not at all Becoming easily annoyed or irritable: 0 = Not at all Feeling afraid as if something awful might happen: 0 = Not at all Total ASHLY-7 score (0-4 normal; 5-9 mild; 10-14 moderate; 15-21 severe): 0 Source: Developed by Drs. Hamilton Heck, Claire Oconnor, Wong Wells and colleagues, with an educational eber from [employer]. Review of Systems Const Denies body aches, Denies fatigue, Denies fever(s), Denies frequent falls, Denies headache(s) and Denies weakness Eyes Reports no additional complaints and Denies change in vision ENT Denies dysphagia, Denies dizziness, Denies facial pain, Denies headache(s), Denies nasal congestion and Denies odynophagia Card Denies chest pain, Denies syncope, Denies irregular heart rhythm, Denies leg edema, Denies lightheadedness and Denies dyspnea Resp Denies cough and Denies dyspnea GI Denies abdominal pain, Reports bloating, Denies constipation, Denies dysphagia, Denies dyspepsia, Denies diarrhea, Denies nausea, Denies odynophagia and Denies vomiting Denies urinary frequency, Denies dysuria, Denies urinary hesitancy and Denies urinary urgency Musc Denies back pain and Denies myalgias Skin/Breast Reports system reviewed and no additional complaints, except as documented Neuro Denies dizziness, Denies syncope, Denies frequent falls, Denies headache(s) and Denies weakness Psych Reports no additional complaints Endo Denies fatigue Physical exam (Primary Care) Vital Signs: Last Vital Signs Pulse 78 10/07/25 13:45 Resp 18 10/07/25 13:45 BP 130/66 10/07/25 13:45 Pulse Ox 98 10/07/25 13:45 Oxygen Delivery Method Room Air 10/07/25 13:45 BMI result Body Mass Index 27.1 Tobacco/Smoking Status: Tobacco use Status Tobacco use date assessed 10/07/25 10/07/25 13:47 Patient Tobacco Use Status Never used Tobacco 10/07/25 13:47 e-Cigarette/Vaping Use Never Used 10/07/25 13:47 PHQ-9: PHQ-9 Score PHQ-9: Total score 0 10/07/25 13:55 Thrive Assessment: Date of Thrive Assessment Date Thrive assessed 10/07/25 10/07/25 13:47 Currently or been in a relationship where the following occur: No concerns reported Const General: cooperative, healthy appearing, comfortable and no acute distress Orientation/consciousness: patient oriented x3 [facility] Head: Yes normocephalic Ears: hearing grossly normal bilaterally, external ears normal, TM's normal bilaterally and EAC's normal General nose exam: Normal external nose present Face and sinus: Yes normal facial exam and Yes sinuses nontender Mouth: Normal oral and palatal mucosa present and tongue normal Throat: Yes posterior oropharynx normal Eyes General: appearance normal, both eyes and all related structures Conjunctivae: conjunctivae normal Pupils: Equal, round and reactive pupils present EOM: EOMs intact bilaterally and No Nystagmus present Neck Neck: Yes normal visual inspection, Yes full ROM and Yes no lymphadenopathy Chest Chest palpation & inspection: normal inspection of the chest Resp Effort & Inspection: normal respiratory effort Auscultation: clear to auscultation bilaterally, no crackles, no rales, no rhonchi, no wheezes and breath sounds present Cardio Rate: regular rate Rhythm: regular rhythm Peripheral pulses: radial pulses present and dorsalis pedis present GI Inspection: Yes normal to inspection and No Abdominal wall edema Palpation (GI): Soft to palpation, not firm and nontender Auscultation: normal bowel sounds Rectal Exam - Female: deferred General: Yes no CVA tenderness Back/Spine/Pelvis Back: no CVA tenderness Skin General skin exam: no rashes or lesions noted Neuro General: patient oriented x3 Cranial nerves: Yes Equal, round and reactive pupils present, Yes Midline tongue present, Yes Ability to bilaterally elevate shoulders present and No Nystagmus present Gait exam (Neuro): Normal gait present Extrem General: Yes normal to inspection, Yes full ROM, No no pedal edema and No edema Psych Speech and movement: Normal speech and movement present Affect: normal affect Insight: Good insight present (Psych) Judgement: Good judgement present (Psych) Coding Level of Care Code Est Pt Prev Care 18-39y(24693) Diagnoses Annual physical exam Z00.00 Vitamin D deficiency E55.9 Eczema L30.9 Abdominal bloating R14.0 Decreased hearing H91.90 Assessment & Plan Assessment & Plan (1) Annual physical exam: Code(s): Z00.00 - Encounter for general adult medical examination without abnormal findings Category: Medical Plan: Patient declining Pap smear as she is not sexually active. She is up-to-date on all recommended vaccinations for her age and blood work is ordered. Follow up in 1 year sooner if new problems arise (2) Vitamin D deficiency: Code(s): E55.9 - Vitamin D deficiency, unspecified Category: Medical Plan: Ordered for updated blood work. (3) Eczema: Code(s): L30.9 - Dermatitis, unspecified Category: Medical Plan: Well managed at this time. Continue to avoid triggers (4) Abdominal bloating: Code(s): R14.0 - Abdominal distension (gaseous) Category: Medical Plan: The patient reports bloating after eating meals when she has gone a long time without food. This is likely due to increased gas and acid production in an empty stomach. She was advised to avoid skipping meals and to have a small snack, like a protein bar, during the day. A list of foods that may cause more gas was provided, and she was counseled on avoiding these foods, especially on days she has not eaten much. She should follow up if the bloating becomes worse or painful. (5) Decreased hearing: Code(s): H91.90 - Unspecified hearing loss, unspecified ear Category: Medical Plan: The patient reports intermittent unilateral hearing loss when singing high- pitched notes, which is likely due to pressure changes and Eustachian tube dysfunction. Physical exam of the ears was normal with no fluid or obstruction. She was advised to continue using her Flonase nasal spray daily and to consider adding an allergy pill to see if that helps reduce the pressure sensations. A hearing test can be performed if symptoms become more bothersome. Plan This note was constructed using voice recognition software. While every effort has been made to ensure accuracy and warehouse shipping clerk, still areas may have been included sometimes these areas may affect the content or meeting of the given symptoms. Total time spent caring for the patient today was 30 minutes. This includes time spent before the visit reviewing the chart, time spent during the visit, and time spent after the visit and documentation. Orders: Orders TSH reflex Free T4 Today Z13.29 - Encounter for screening for other suspected endocrine disorder Comprehensive Met. Panel Today Z00.00 - Encounter for general adult medical examination without abnormal findings Lipid Panel Today Z13.220 - Encounter for screening for lipoid disorders UA CC w/rflx Micro + Cult Today R35.89 - Other polyuria Vitamin D 25-OH Total Today E55.9 - Vitamin D deficiency, unspecified, Z13.21 - Encounter for screening for nutritional disorder Vitamin B12 and Folate Today Z13.21 - Encounter for screening for nutritional disorder Complete Blood Count Auto Diff Today Z13.0 - Encounter for screening for diseases of the blood and blood-forming organs and certain disorders involving the immune mechanism Medications: Refilled triamcinolone acetonide 0.1% 1 appl topical BEDTIME 15 grams 0RF 14 days L30.9 - Dermatitis, unspecified
--- OUTSIDE RECORDS SUMMARY | 2025-10-07 21:16 | XMS_ITS | Clinical Summary ---
Author Organization [facility] Address [address] [place] [id number] Phone Care Team Providers Care Bladder Cleaner Name Role Phone Bertha Fairbanks MD Primary Care Provider [phone] Allergies Active Allergy Reactions Criticality Noted Date Comments Azithromycin 06/25/2022 Medications fluticasone propionate (FLONASE) 50 mcg/actuation nasal spray 1 SPRAY INTRANASALLY DAILY NEEDED FOR NASAL CONGESTION ADMINISTER INTO EACH NOSTRIL Active Active Problems No known active problems Immunizations Immunization Administration Dates Next Due Influenza Quadrivalent Preservative Free IM 02/2022 Influenza, Unspecified Formulation 07/22/2020 Tdap 08/20/2024 Social History Tobacco Use Types Packs/Day Years Used Date Smoking Tobacco: Never Passive Smoke Exposure: Never Smokeless Tobacco: Never Tobacco Cessation:Counseling Given: Not Answered Education Answer Date Recorded Are you interested in more education? Not on stacy e 02/24/2023 Are you concerned about learning? Not on file 02/24/2023 No 02/24/2023 No 02/24/2023 Digital Access Answer Date Recorded No 03/24/2023 No 03/24/2023 Reliable internet access at home? Not on file 03/24/2023 Device with a working camera? Not on file Intimate Partner Violence Answer Date R ecorded Are you denied basic needs s uch as food, clothing, or medical care? No 08/19/2024 In the past 12 months have y ou been in a relationship with a person who hurts, threatens, or tries to control you? No 08/19/2024 Are you denied basic needs s uch as food, clothing, or medical care? No 08/19/2024 In the past 12 months have y ou been in a relationship with a person who hurts, threatens, or tries to control you? No 08/19/2024 Comments Unknown Sex and Gender Information Value Date Recorded Sex Assigned at Female 08/20/2024 9:50 AM EDT Legal Sex Female 10:55 AM EDT Gender Identity Female 08/20/2024 9:50 AM EDT Sexual Orientation Straight 08/20/2024 9: 50 AM EDT Last Filed Vital Signs Vital Sign Reading Time Taken Comments Blood Pressure 153/83 08/20/2024 11:19 AM EDT Pulse 75 08/20/2024 11:19 AM EDT Temperature 36.8 C (98.2 F) 08/20/2024 11:19 AM EDT Respiratory Rate 25 08/20/2024 11:19 AM EDT Oxygen Saturation 100% 08/20/2024 11:19 AM EDT Inhaled Oxygen Concentration - - Weight 68 kg (150 lb) 08/20/2024 11:19 AM EDT Height 167.6 cm (5' 6 ) 08/20/2024 11:19 AM EDT Body Mass Index 24.21 08/20/2024 11:19 AM EDT Plan of Treatment Health Maintenance Due Date Last Done Comments DEPRESSION SCREENING 2006 HEPATITIS C SCREENING 2012 HIV ONE-TIME SCREENING (18-6 5 YEARS) 2012 PAP SMEAR 2015 INFLUENZA VACCINE (#1) 2025 2, 07/22/2020 COVID-19 VACCINE (2024-2 6 season) 2025 Adult Td,Tdap Booster 08/20/2034 08/20/2024 SMOKING STATUS SCREENING (On ce After 26 Yrs) Completed 08/20/2024 HEPATITIS A VACCINES Aged Out No long er eligible based on patient's age to complete this topic HIB VACCINES Aged Out No longer eligi ble based on patient's age to complete this topic MENINGOCOCCAL VACCINES (ACWY) Aged Out No longer eligible based on patient's age to complete this topic MENINGOCOCCAL VACCINES (B) Aged Out N o longer eligible based on patient's age to complete this topic PNEUMOCOCCAL VACCINES (0-49 years) Aged Out No longer eligible b ased on patient's age to complete this topic Medical Devices Not on file Insurance O POS [place] [address] [place] [id number] POS EPO [facility] EPO O POS EPO [facility] POS EPO [facility] POS [facility]PO [facility] POS EPO [facility] POS EPO Care Teams Bladder Cleaner Relationship Specialty Start Date End Date Bertha Fairbanks MD [address] [place] [address] PCP - General Internal Medicine 09/09/22 Additional Source Comments The information contained in this document represents components of the legal health record. It is not the complete legal health record.[facility]
--- OUTSIDE RECORDS SUMMARY | 2025-10-07 21:16 | XMS_ITS | Encounter Summary ---
Author Organization [facility] Address [address] [place] [address] Phone Care Team Providers Care Brim Rounder Name Role Phone Bertha Fairbanks MD Primary Care Provider [phone] Encounter Details Date Type Department Care Team (Late st Contact Info) Description 09/26/2022 Transcribe Orders Virtual Department [address] [place] [address] Bertha Fairbanks MD [address] [place] [id number] Low back pain, unspecified back pain laterality, unspecified chronicity, unspecified whether sciatica present (Primary Dx) Social History Tobacco Use Types Packs/Day Years Used Date Smoking Tobacco: Never Smokeless Tobacco: Never Comments Unknown Sex and Gender Information Value Date Recorded Sex Assigned at Female 08/20/2024 9:50 AM EDT Legal Sex Female 10:55 AM EDT Gender Identity Female 08/20/2024 9:50 AM EDT Sexual Orientation Straight 08/20/2024 9: 50 AM EDT documented as of this encounter Plan of Treatment Not on file documented as of this encounter Visit Diagnoses Diagnosis Low back pain, unspecified back pain laterality, unspecified chronicity, unspecified whether sciatica present- Primary documented in this encounter Additional Health Concerns Infection Onset Date Last Indicated Resolved Time CoV-Risk 10/02/2022 10/02/2022 10/13/2022 1:23 AM EST documented as of this encounter Care Teams Brim Rounder Relationship Specialty Start Date End Date Bertha Fairbanks MD [address] [place] [address] PCP - General Internal Medicine 09/09/22 documented as of this encounter Additional Source Comments The information contained in this document represents components of the legal health record. It is not the complete legal health record.[facility]
== END 2025-10-07 14:45 | disposition home or self-care (01) ==
LOC: HO.HMCH 13:43
PROVIDERS: PCP Internal Medicine
DX: Z00.00 Encounter for general adult medical examination without abnormal findings (principal); E55.9 Vitamin D deficiency, unspecified; L30.9 Dermatitis, unspecified; R14.0 Abdominal distension (gaseous); H91.90 Unspecified hearing loss, unspecified ear